=== PATIENT | male | born 1965 | race Caucasian/White ===

== ENCOUNTER → 2023-05-17 09:26 | Outpatient (REF) | payer OTHER, SELFPAY | LOC: WDC 09:26 | PROVIDERS: ATTENDING PHYSICIAN Physician Assistant; FAMILY PHYSICIAN Family Medicine | DX: N64.4 Mastodynia (principal); N63.42 Unspecified lump in left breast, subareolar | CPT/HCPCS: 76642; 77062; 77066 ==

== ENCOUNTER → 2024-01-26 11:03 | Outpatient (REF) | payer OTHER, SELFPAY | LOC: RAD 11:03 | PROVIDERS: ATTENDING PHYSICIAN Physician Assistant | DX: M79.604 Pain in right leg (principal) | CPT/HCPCS: 72110 ==

== ENCOUNTER → 2024-06-28 14:12 | Outpatient (REF) | payer OTHER, SELFPAY | LOC: RAD 14:12 | PROVIDERS: ATTENDING PHYSICIAN Nurse Practitioner Family; FAMILY PHYSICIAN Family Medicine | DX: R07.89 Other chest pain (principal) | CPT/HCPCS: 71046 ==

== ENCOUNTER → 2024-07-09 16:16 | Outpatient (REF) | payer OTHER, SELFPAY | LOC: RCS 16:16 | PROVIDERS: ATTENDING PHYSICIAN Nurse Practitioner Family; FAMILY PHYSICIAN Family Medicine | DX: R07.89 Other chest pain (principal) | CPT/HCPCS: 93005 ==

== ENCOUNTER → 2024-11-26 07:49 | Outpatient (REF) | payer OTHER, SELFPAY | LOC: EMG 07:49 | PROVIDERS: ATTENDING PHYSICIAN Nurse Practitioner Family | DX: G62.9 Polyneuropathy, unspecified (principal); R73.9 Hyperglycemia, unspecified | CPT/HCPCS: 95886; 95913 ==